=== PATIENT | male | born 1930 | race Caucasian/White ===

== ENCOUNTER 2017-12-16 16:22 | Emergency (ER) | payer MEDICARE ==
--- NOTE | 2017-12-16 16:32 | Emergency Department Record ---
History of Present Illness - General Chief Complaint: Fall Injury Stated Complaint: FALL Time Seen by Provider: 12/16/17 16:25 Source: Patient Mode of Arrival: Ambulatory Limitations: No limitations - History of Present Illness Initial Comments: 87 yo male presents after a fall at [facility]. He was in the restroom on the toilet. He stood and tangled his feet. He by report fell backward. He hit the back of the head and neck on a door. No other injures reported by EMS or the patient. He denies any pain. He states he did have neck surgery many years ago. He is unsure why. No blood thinners. Complaint: Fall -: Minutes(s) Fall From: Standing When Fall Occurred: Just prior to arrival Fall Witnessed: Yes, by living facility staff Place Fall Occurred: intermediate/SNF Loss of Consciousness: None Prolonged Down Time?: No Symptoms Prior to Fall: None Location: Head, Neck Severity: Mild (Denies pain) Context: Other Associated Symptoms: Denies - Mah[place] Coma Scale Eye Response: (4) Open spontaneously Motor Response: (6) Obeys commands Verbal Response: (5) Oriented Mahin Total: 15 - Related Data Allergies Allergy/AdvReac Type Severity Reaction Status Date / Time nitrous oxide Allergy PT UNSURE Verified 12/16/17 16:36 OF REACTION shellfish derived Allergy PT UNSURE Verified 12/16/17 16:36 OF REACTION Review of Systems Constitutional: Denies: Chills, Weakness Eyes: Denies: Eye discharge ENT: Denies: Congestion, Throat pain Respiratory: Denies: Cough Cardiovascular: Denies: Chest pain, Syncope Endocrine: Denies: Fatigue Gastrointestinal: Denies: Abdominal pain, Diarrhea, Nausea, Vomiting Genitourinary: Reports: Incontinence (chronic) Musculoskeletal: Denies: Arthralgia, Back pain, Joint swelling, Myalgia Skin: Denies: Bruising, Change in color Neurological: Denies: Headache, Numbness, Paresthesias, Weakness Psychiatric: Denies: Anxiety Hematological/Lymphatic: Denies: Easy bleeding, Easy bruising, Swollen glands Past Medical History - SOCIAL HISTORY Smoking Status: Never smoker Drug Use: None - RESPIRATORY Hx Respiratory Disorders: No - CARDIOVASCULAR Hx Cardio Disorders: Yes Hx Hypertension: Yes Comment:: high cholesterol - NEURO Hx Neuro Disorders: Yes Hx Dementia: Yes - GI Hx GI Disorders: No - Hx Genitourinary Disorders: No - ENDOCRINE Hx Endocrine Disorders: No - MUSCULOSKELETAL Hx Musculoskeletal Disorders: No - PSYCH Hx Psych Problems: Yes Hx Depression: Yes - HEMATOLOGY/ONCOLOGY Hx Hematology/Oncology Disorders: No Physical Exam - General General Appearance: Alert, Cooperative, No acute distress Limitations: No limitations - Head Head exam: Atraumatic, Normocephalic, Normal inspection Head exam detail: negative: Abrasion, Contusion, General tenderness, Hematoma, Laceration - Eye Eye exam: Normal appearance, PERRL. negative: Conjunctival injection, Scleral icterus - ENT ENT exam: Normal exam, Mucous membranes moist, Normal orophraynx Ear exam: Normal external inspection Nasal Exam: Normal inspection Mouth exam: Normal external inspection - Neck Neck exam: Normal inspection, Full ROM. negative: Tenderness - Respiratory Respiratory exam: Normal lung sounds bilaterally. negative: Chest wall tenderness, Respiratory distress, Rhonchi, Stridor, Wheezes - Cardiovascular Cardiovascular Exam: Regular rate, Normal rhythm, Normal heart sounds Peripheral Pulses: 2+: Radial (R), Radial (L) - GI/Abdominal GI/Abdominal exam: Soft. negative: Distended, Guarding, Rigid, Tenderness - Rectal Rectal exam: Deferred - exam: Deferred - Extremities Extremities exam: Normal inspection, Full ROM, Normal capillary refill. negative: Joint swelling, Tenderness Image of Full Body: 1 - 2cm very faint bruise, abrasion, non tender - Back Back exam: Reports: Full ROM. Denies: CVA tenderness (R), CVA tenderness (L), Paraspinal tenderness, Tenderness, Vertebral tenderness - Neurological Neurological exam: Alert. negative: Altered (baseline), Motor sensory deficit - Psychiatric Psychiatric exam: Normal affect, Normal mood. negative: Agitated, Anxious - Skin Skin exam: Abrasion (right lateral knee), Normal color. negative: Cyanosis, Diaphoretic, Erythema Course - Reevaluation(s) Reevaluation #1: 12/16/17 16:32 Alert, conversational, denies pain. No list of any blood thinners 12/16/17 18:11 No acute injury or new process on the Head or Cervical CT scans. DC. No new pains or complaints at DC Disposition Disposition: Discharge Clinical Impression: Fall Qualifiers: Encounter type: initial encounter Qualified Code(s): W19.XXXA - Unspecified fall, initial encounter Head contusion Qualifiers: Encounter type: initial encounter Laterality: unspecified laterality Disposition: Home, Self-Care Condition: (1) Good Instructions: Fall Prevention for Older Adults (ED) Additional Instructions: Take care at all times with walking and moving around your room Return if you have any new symptoms, pain, or concerns Forms: Patient Portal Access Time of Disposition: 18:12 Quality - Quality Measures Quality Measures: N/A, Blunt Head Trauma (>2yr) - [place] Coma Scale [place] Coma Scale: Mahin Coma Scale Eye Response: (4) Open spontaneously Motor Response: (6) Obeys commands Verbal Response: (5) Oriented [place] Total: 15 - Blunt Head Trauma - Adult Quality Measure: Measure #415: Utilization of CT for Minor Blunt Head Trauma ICD10 Codes Entered: Yes Was CT ordered: Yes Does Patient Have Any of the Following: No Exclusions Patient Presented Within 24 Hours of Injury: Yes Mahin Score: [address] for Minor Blunt Head Trauma: < CT Done, Appropriate Indication > [G9529] Additional Inclusion Criteria: Within 24hrs (AND) GCS of 15 (AND) CT ordered. [ G9530] Indications For CT: Age 65 Years and Older - Blood Pressure Screening Does Patient Have Any of the Following: No Blood Pressure Classification: Pre-Hypertensive BP Reading Systolic Measurement: 134 Diastolic Measurement: 69 Screening for High Blood Pressure: < Pre-Hypertensive BP, F/U Documented > [ G8950] Pre-Hypertensive Follow-up Interventions: Referral to alternative/primary care provider.
== END 2017-12-16 18:49 | disposition home or self-care (01) ==
LOC: ER 16:22
DX: S80.01XA Contusion of right knee, initial encounter (principal); S00.93XA Contusion of unspecified part of head, initial encounter; M54.2 Cervicalgia; W18.12XA Fall from or off toilet with subsequent striking against object, initial encounter; Y92.121 Bathroom in nursing home as the place of occurrence of the external cause; F03.90 Unspecified dementia, unspecified severity, without behavioral disturbance, psychotic disturbance, mood disturbance, and anxiety; I10 Essential (primary) hypertension
CPT/HCPCS: 70450; 72125; 99283

== ENCOUNTER 2018-02-09 11:08 | Observation (INO) | payer MEDICARE ==
[2018-02-09] MEDS ORDERED: 0.9 % SODIUM CHLORIDE 1,000 ML BAG IV ONE (11:13)
--- NOTE | 2018-02-09 11:14 | Emergency Department Record ---
History of Present Illness - General Chief complaint: Weakness Stated complaint: WEAKNESS Time Seen by Provider: 02/09/18 11:13 Source: Patient, RN notes reviewed - History of Present Illness Initial comments: patient is [facility] resident and on the memory side and she had a low BP and was sent to the ED by EMS. INcontinent of urine and stool,PmH dementia ,hypertension , hypercholesterol .Patient is a DNR - Related Data Allergies Allergy/AdvReac Type Severity Reaction Status Date / Time nitrous oxide Allergy PT UNSURE Verified 02/09/18 11:12 OF REACTION shellfish derived Allergy PT UNSURE Verified 02/09/18 11:12 OF REACTION Review of Systems Reviewed: No additional complaints except as noted below Constitutional: Reports: As per HPI, Weakness. Denies: Chills, Fever, Malaise, Night sweats, Weight change Eyes: Reports: As per HPI. Denies: Eye discharge, Eye pain, Photophobia, Vision change ENT: Reports: As per HPI. Denies: Congestion, Dental pain, Ear pain, Epistaxis , Hearing loss, Throat pain Respiratory: Reports: As per HPI. Denies: Cough, Dyspnea, Hemoptysis, Stridor, Wheezes Cardiovascular: Reports: As per HPI. Denies: Arrhythmia, Chest pain, Dyspnea on exertion, Edema, Murmurs, Orthopnea, Palpitations, Paroxysmal nocturnal dyspnea, Rheumatic Fever, Syncope Endocrine: Reports: As per HPI. Denies: Fatigue, Heat or cold intolerance, Polydipsia, Polyuria Gastrointestinal: Reports: As per HPI. Denies: Abdominal pain, Constipation, Diarrhea, Hematemesis, Hematochezia, Melena, Nausea, Vomiting Genitourinary: Reports: As per HPI, Incontinence. Denies: Dysuria, Frequency, Hematuria, Retention, Testicular pain, Testicular mass, Urgency Musculoskeletal: Reports: As per HPI. Denies: Arthralgia, Back pain, Gout, Joint swelling, Myalgia, Neck pain Skin: Reports: As per HPI, Other (abrasions of knees). Denies: Bruising, Change in color, Change in hair/nails, Lesions, Pruritus, Rash Neurological: Reports: As per HPI. Denies: Abnormal gait, Confusion, Headache, Numbness, Paresthesias, Seizure, Tingling, Tremors, Vertigo, Weakness Psychiatric: Reports: As per HPI. Denies: Anxiety, Auditory hallucinations, Depression, Homicidal thoughts, Suicidal thoughts, Visual hallucinations Hematological/Lymphatic: Reports: As per HPI. Denies: Anemia, Blood Clots, Easy bleeding, Easy bruising, Swollen glands Past Medical History - SOCIAL HISTORY Smoking Status: Never smoker Drug Use: None - RESPIRATORY Hx Respiratory Disorders: No - CARDIOVASCULAR Hx Cardio Disorders: Yes Hx Hypertension: Yes Comment:: high cholesterol - NEURO Hx Neuro Disorders: Yes Hx Dementia: Yes - GI Hx GI Disorders: No - Hx Genitourinary Disorders: No - ENDOCRINE Hx Endocrine Disorders: No - MUSCULOSKELETAL Hx Musculoskeletal Disorders: No - PSYCH Hx Psych Problems: Yes Hx Depression: Yes - HEMATOLOGY/ONCOLOGY Hx Hematology/Oncology Disorders: No Physical Exam - General General Appearance: Alert, Oriented x3, Cooperative, No acute distress - Head Head exam: Normal inspection - Eye Eye exam: Normal appearance, PERRL Pupils: Normal accommodation - ENT ENT exam: Normal exam, Mucous membranes moist, Normal external ear exam, Normal orophraynx, TM's normal bilaterally Ear exam: Normal external inspection. negative: External canal tenderness Nasal Exam: Normal inspection. negative: Discharge, Sinus tenderness Mouth exam: Normal external inspection, Tongue normal Teeth exam: Normal inspection. negative: Dental caries Throat exam: Normal inspection. negative: Tonsillar erythema, Tonsillar exudate - Neck Neck exam: Normal inspection, Full ROM. negative: Tenderness - Respiratory Respiratory exam: Normal lung sounds bilaterally. negative: Respiratory distress - Cardiovascular Cardiovascular Exam: Regular rate, Normal rhythm, Normal heart sounds - GI/Abdominal GI/Abdominal exam: Soft, Normal bowel sounds. negative: Tenderness - Rectal Rectal exam: Deferred - exam: Deferred, Other (wears depends) - Extremities Extremities exam: Normal inspection, Full ROM, Normal capillary refill. negative: Tenderness - Back Back exam: Reports: Normal inspection, Full ROM. Denies: Muscle spasm, Rash noted, Tenderness - Neurological Neurological exam: Alert, Normal gait, Oriented X3, Reflexes normal - Psychiatric Psychiatric exam: Normal affect, Normal mood - Skin Skin exam: Dry, Intact, Normal color, Warm Course - Reevaluation(s) Reevaluation #1: discussed case with Dr. Clifton and will admit to observation 02/09/18 16:50 Medical Decision Making - Lab Data Result diagrams: 02/09/18 11:15 02/09/18 11:15 Disposition Clinical Impression: Dehydration, Weakness, Abrasion of both knees, Dementia, DNR (do not resuscitate) Hypotension Qualifiers: Hypotension type: hypotension due to hypovolemia Qualified Code(s): I95.89 - Other hypotension; E86.1 - Hypovolemia Decision to Admit: Admit from ER Forms: Patient Portal Access Quality - Quality Measures Quality Measures: N/A - Blood Pressure Screening Does Patient Have Any of the Following: No Blood Pressure Classification: Normal BP Reading Systolic Measurement: 83 Diastolic Measurement: 55 Screening for High Blood Pressure: < Normal BP, F/U Not Required > [G8783]
[2018-02-09 11:24] LABS: BASO % 0.1 % (0-6); EOS % 1.1 % (0-6); GRAN % 74.5 % (47-80); HEMATOCRIT 40.2 % (42.0-52.0); HEMOGLOBIN 12.6 gm/dl (14.0-18.0); LYMPH % 15.2 % (16-45); MEAN CELL VOLUME 97.3 fl (81-97); MEAN CORPUSCULAR HEMOGLOBIN 30.5 pg (27-33); MEAN CORPUSCULAR HGB CONC 31.3 g/dl (32-36); MEAN PLATELET VOLUME 10.7 fl (7.4-10.4); MONO % 9.1 % (0-9); PLATELET COUNT 198 K/uL (130-400); RED BLOOD COUNT 4.13 M/uL (4.40-5.70); RED CELL DISTRIBUTION WIDTH 12.9 % (11.5-14.5); WHITE BLOOD COUNT W/O DIFF 9.5 K/uL (4.2-12.2)
[2018-02-09 11:33] LABS: CREATININE 1.5 mg/dL (0.7-1.2)
[2018-02-09] MEDS ORDERED: LIDOCAINE UROJECT 10 ML APPL MM ONE (12:03)
[2018-02-09 12:29] LABS: URINE APPEARANCE CLEAR; URINE BILIRUBIN NEGATIVE (NEGATIVE); URINE BLOOD TRACE-I (NEGATIVE); URINE COLOR YELLOW; URINE GLUCOSE (UA) NEGATIVE (NEGATIVE); URINE KETONE NEGATIVE (NEGATIVE); URINE LEUKOCYTE ESTERASE NEGATIVE (NEGATIVE); URINE NITRITE NEGATIVE (NEGATIVE); URINE PROTEIN NEGATIVE (NEGATIVE)
[2018-02-09 12:35] LABS: URINE EPITHELIAL CELLS 0 - 2 (FEW); URINE WBC NONE SEEN (0-2/hpf)
[2018-02-09] MEDS ORDERED: ACETAMINOPHEN 325 MG TAB PO PRN (17:19)
[2018-02-09] MEDS ORDERED: TRAZODONE 50 MG TABLET PO SCH (22:00)
--- NOTE | 2018-02-10 07:45 | RADIOLOGY REPORT ---
EXAM: CHEST, ONE VIEW HISTORY: HYPOTENSIVE ANTI-HYPOXIC. TECHNIQUE: A single AP view of the chest was obtained. Comparison: None. FINDINGS: The cardiomediastinal silhouette is normal in size. The pulmonary vasculature is not congested. No focal consolidation, pleural effusion, or pneumothorax is evident. Status post left shoulder arthroplasty. IMPRESSION: NO EVIDENCE FOR PNEUMONIA OR PULMONARY EDEMA. JOB NUMBER: [id number] MTDD
--- NOTE | 2018-02-10 08:27 | History & Physical ---
History of Present Illness - Date of Service Date of Service for History & Physical: 02/10/18 - History of Present Illness Admitting Diagnosis: dehydration. DNR. Weakness. hypotension from dehydration and BP meds and lorazapam History of Present Illness: Mr. Salas is a 88 y/o male resident of [facility] adult living facility who presented to the ED yesterday with complaint of weakness and low blood pressure. As per ED report the patient appeared weaker and not his usual self while at the facility yesterday. According to his daughter who works at [facility] the patient has been having some stumbling and falls recently. She says that he has not complained of dizziness, headaches or any other medical complaints. He was found to be hypotensive on admission but had no other significant diagnostic findings. The patient has medical history of both urinary and fecal incontinence, hypertension, dementia and hyperlipidemia. Had vitals signs on admission include : Vital on admission: BP: 83/55 HR: 83 RR: 18 T: 98.0 Sats: 98% RA The patient is admitted in observation status for hydration. Travel Screening - Travel/Exposure Within Last 30 Days Have you traveled within the last 30 days?: No - Travel/Exposure Within Last Year Have you traveled outside the [place] in the last year?: No - Additonal Travel Details Have you been exposed to anyone with a communicable illness?: No Review of Systems Constitutional: Reports: As per HPI, Weakness. Denies: Chills, Fever, Malaise, Night sweats, Weight change Eyes: Reports: As per HPI. Denies: Eye discharge, Eye pain, Photophobia, Vision change ENT: Reports: As per HPI. Denies: Congestion, Dental pain, Ear pain, Epistaxis , Hearing loss, Throat pain Respiratory: Reports: As per HPI. Denies: Cough, Dyspnea, Hemoptysis, Stridor, Wheezes Cardiovascular: Reports: As per HPI. Denies: Arrhythmia, Chest pain, Dyspnea on exertion, Edema, Murmurs, Orthopnea, Palpitations, Paroxysmal nocturnal dyspnea, Rheumatic Fever, Syncope Endocrine: Reports: As per HPI. Denies: Fatigue, Heat or cold intolerance, Polydipsia, Polyuria Gastrointestinal: Reports: As per HPI. Denies: Abdominal pain, Constipation, Diarrhea, Hematemesis, Hematochezia, Melena, Nausea, Vomiting Genitourinary: Reports: As per HPI, Incontinence. Denies: Dysuria, Frequency, Hematuria, Retention, Testicular pain, Testicular mass, Urgency Musculoskeletal: Reports: As per HPI. Denies: Arthralgia, Back pain, Gout, Joint swelling, Myalgia, Neck pain Skin: Reports: As per HPI, Other (abrasions of knees). Denies: Bruising, Change in color, Change in hair/nails, Lesions, Pruritus, Rash Neurological: Reports: As per HPI. Denies: Abnormal gait, Confusion, Headache, Numbness, Paresthesias, Seizure, Tingling, Tremors, Vertigo, Weakness Psychiatric: Reports: As per HPI. Denies: Anxiety, Auditory hallucinations, Depression, Homicidal thoughts, Suicidal thoughts, Visual hallucinations Hematological/Lymphatic: Reports: As per HPI. Denies: Anemia, Blood Clots, Easy bleeding, Easy bruising, Swollen glands Past Medical History - SOCIAL HISTORY Smoking Status: Never smoker - RESPIRATORY Hx Respiratory Disorders: No - CARDIOVASCULAR Hx Cardio Disorders: Yes Hx Hypertension: Yes Comment:: high cholesterol - NEURO Hx Neuro Disorders: Yes Hx Dementia: Yes - GI Hx GI Disorders: No - Hx Genitourinary Disorders: No - ENDOCRINE Hx Endocrine Disorders: No - MUSCULOSKELETAL Hx Musculoskeletal Disorders: No - PSYCH Hx Psych Problems: Yes Hx Depression: Yes - HEMATOLOGY/ONCOLOGY Hx Hematology/Oncology Disorders: No Family Medical History Any Significant Family History?: No H&P Meds/Allergies - Allergies Allergies: Allergies Allergy/AdvReac Type Severity Reaction Status Date / Time nitrous oxide Allergy PT UNSURE Verified 02/09/18 11:12 OF REACTION shellfish derived Allergy PT UNSURE Verified 02/09/18 11:12 OF REACTION - Active Medications Active Medications: Current Medications Acetaminophen (Tylenol 325mg) 650 mg PO Q6H PRN PRN Reason: PAIN - MILD(1-4)/FEVER Atorvastatin Calcium (Lipitor) 10 mg PO DAILY [facility] Donepezil HCl (Aricept) 10 mg PO DAILY [facility] Enoxaparin Sodium (Lovenox) 30 mg SC DAILY [facility] Fluoxetine HCl (Prozac) 40 mg PO DAILY [facility] Memantine (Namenda) 10 mg PO BID [facility] Trazodone HCl (Desyrel) 50 mg PO QHS [facility] Last Admin: 02/09/18 21:11 Dose: 50 mg Physical Exam - Vital Signs Vital Signs: Vital Signs - Last 24 Hrs Temp Pulse Pulse Resp BP BP Pulse Ox 02/10/18 07:30 92 H 14 02/10/18 06:00 98.4 F 70 16 137/68 96 02/09/18 21:30 98.8 F 80 18 127/69 84 L 02/09/18 17:24 75 18 121/56 99 02/09/18 17:09 86 129/58 02/09/18 15:49 82 20 134/63 97 02/09/18 14:11 86 20 121/54 97 02/09/18 12:56 79 18 113/66 97 02/09/18 12:04 83 18 86/54 96 02/09/18 11:24 73 18 93/48 97 02/09/18 11:13 98.0 F 83 18 83/55 98 - General General Appearance: Alert, Cooperative, No acute distress, Other (not oriented to time or place. ) Limitations: Other - Head Head exam: Normal inspection - Eye Eye exam: Normal appearance, PERRL Pupils: Normal accommodation - ENT ENT exam: Normal exam, Mucous membranes moist, Normal external ear exam, Normal orophraynx, TM's normal bilaterally Ear exam: Normal external inspection. negative: External canal tenderness Nasal Exam: Normal inspection. negative: Discharge, Sinus tenderness Mouth exam: Normal external inspection, Tongue normal Teeth exam: Normal inspection. negative: Dental caries Throat exam: Normal inspection. negative: Tonsillar erythema, Tonsillar exudate - Neck Neck exam: Normal inspection, Full ROM. negative: Tenderness - Respiratory Respiratory exam: Normal lung sounds bilaterally. negative: Respiratory distress - Cardiovascular Cardiovascular Exam: Regular rate, Normal rhythm, Normal heart sounds Peripheral Pulses: 3+: Radial (R), Radial (L), Dorsalis Pedis (R), Dorsalis Pedis (L) - GI/Abdominal GI/Abdominal exam: Soft, Normal bowel sounds. negative: Tenderness - Rectal Rectal exam: Deferred - exam: Deferred, Other (wears depends) - Extremities Extremities exam: Normal inspection, Full ROM, Normal capillary refill. negative: Tenderness - Back Back exam: Reports: Normal inspection, Full ROM. Denies: Muscle spasm, Rash noted, Tenderness - Neurological Neurological exam: Alert, Normal gait, Oriented X3, Reflexes normal - Psychiatric Psychiatric exam: Normal affect, Normal mood - Skin Skin exam: Dry, Intact, Normal color, Warm Results - Labs Result Diagrams: 02/09/18 11:15 02/09/18 11:15 Labs Last 24 Hours: Laboratory Results - last 24 hr 02/09/18 02/09/18 02/09/18 11:15 11:15 12:27 WBC 9.5 RBC 4.13 L Hgb 12.6 L Hct 40.2 L MCV 97.3 H MCH 30.5 MCHC 31.3 L RDW 12.9 Plt Count 198 MPV 10.7 H Gran % 74.5 Lymphocytes % 15.2 L Monocytes % 9.1 H Eosinophils % 1.1 Basophils % 0.1 Sodium 140 Potassium 4.5 Chloride 99 Carbon Dioxide 29.0 Anion Gap 12.0 BUN 26 H Creatinine 1.5 H Estimated GFR 47 Random Glucose 181 H Calcium 8.8 Urine Color Yellow Urine Appearance Clear Urine pH 7.0 Ur Specific [place] 1.010 Urine Protein Negative Urine Glucose (UA) Negative Urine Ketones Negative Urine Blood Trace-i Urine Nitrite Negative Urine Bilirubin Negative Urine Urobilinogen 1.0 Ur Leukocyte Esterase Negative Urine RBC 3 - 6 Urine WBC None seen Ur Epithelial Cells 0 - 2 VTE H&P Assessment - Risk for VTE Risk for VTE: Yes Risk Level: High Risk Assessment Date: 02/10/18 Risk Assessment Time: 09:16 VTE Orders Placed or Will Be Placed: Yes Plan - Detailed Diagnosis and Plan (1) Weakness Current Visit: Yes Status: Acute Base Code: R53.1 - WEAKNESS Comment: 02/10/18: - likely due to dehydration from diuretic use. Resolved. - hold BP medications. - IVF 1/2 liter bolus administered. (2) Hypotension Current Visit: Yes Status: Acute Qualifiers: Hypotension type: hypotension due to hypovolemia Qualified Code(s): I95.89 - Other hypotension; E86.1 - Hypovolemia Base Code: I95.9 - HYPOTENSION, UNSPECIFIED Comment: 02/10/18: - BP on admission 83/55, currently 127/69. Resolved - Hold Lisnopril/HCTZ and would recommend holding at discharge. - 1/2 liter Nacl 0.9% bolused in ED. - Cont with PO hydration. - CBC w/ diff - negative, CMP within normal limits. (3) Dementia Current Visit: Yes Status: Acute Base Code: F03.90 - UNSPECIFIED DEMENTIA WITHOUT BEHAVIORAL DISTURBANCE Comment: 02/10/18: - Prozac 40mg, Memantine 28mg, Aricept 10mg, Ativan 0.5mg BID. (4) Abrasion of both knees Current Visit: Yes Status: Acute Base Code: S80.211A - ABRASION, RIGHT KNEE , INITIAL ENCOUNTER; S80.212A - ABRASION, LEFT KNEE, INITIAL ENCOUNTER Comment : 02/10/18: - superficial bilateral knee abrasions 2/2 falls. - fall precuations and assistance with ambulation as needed. (5) DVT prophylaxis Current Visit: Yes Status: Acute Base Code: [id number] - Comment: 02/10/18: - Lovenox 40mg daily. (6) DNR (do not resuscitate) Current Visit: Yes Status: Acute Base Code: Z66 - DO NOT RESUSCITATE Comment: 02/10/18: - DNR - Talked to DPOA the patient's daughter Judith Acuña regarding code status. - Need documentation for the chart.
--- NOTE | 2018-02-10 09:22 | Discharge Summary ---
Providers Discharge Summary Date: 02/10/18 Date of admission: 02/09/18 17:04 Attending physician: MINE FUENTES Primary care physician: ARNIE CALHOUN Physical Exam - Vital Signs Vital Signs: Vital Signs - Last 24 Hrs Temp Pulse Pulse Resp BP BP Pulse Ox 02/10/18 07:30 92 H 14 02/10/18 06:00 98.4 F 70 16 137/68 96 02/09/18 21:30 98.8 F 80 18 127/69 84 L 02/09/18 17:24 75 18 121/56 99 02/09/18 17:09 86 129/58 02/09/18 15:49 82 20 134/63 97 02/09/18 14:11 86 20 121/54 97 02/09/18 12:56 79 18 113/66 97 02/09/18 12:04 83 18 86/54 96 02/09/18 11:24 73 18 93/48 97 02/09/18 11:13 98.0 F 83 18 83/55 98 - General General Appearance: Alert, Cooperative, No acute distress, Other (not oriented to time or place. ) Limitations: Other - Head Head exam: Normal inspection - Eye Eye exam: Normal appearance, PERRL Pupils: Normal accommodation - ENT ENT exam: Normal exam, Mucous membranes moist, Normal external ear exam, Normal orophraynx, TM's normal bilaterally Ear exam: Normal external inspection. negative: External canal tenderness Nasal Exam: Normal inspection. negative: Discharge, Sinus tenderness Mouth exam: Normal external inspection, Tongue normal Teeth exam: Normal inspection. negative: Dental caries Throat exam: Normal inspection. negative: Tonsillar erythema, Tonsillar exudate - Neck Neck exam: Normal inspection, Full ROM. negative: Tenderness - Respiratory Respiratory exam: Normal lung sounds bilaterally. negative: Respiratory distress - Cardiovascular Cardiovascular Exam: Regular rate, Normal rhythm, Normal heart sounds Peripheral Pulses: 3+: Radial (R), Radial (L), Dorsalis Pedis (R), Dorsalis Pedis (L) - GI/Abdominal GI/Abdominal exam: Soft, Normal bowel sounds. negative: Tenderness - Rectal Rectal exam: Deferred - exam: Deferred, Other (wears depends) - Extremities Extremities exam: Normal inspection, Full ROM, Normal capillary refill. negative: Tenderness - Back Back exam: Reports: Normal inspection, Full ROM. Denies: Muscle spasm, Rash noted, Tenderness - Neurological Neurological exam: Alert, Normal gait, Oriented X3, Reflexes normal - Psychiatric Psychiatric exam: Normal affect, Normal mood - Skin Skin exam: Dry, Intact, Normal color, Warm Hospitalization - Hospitalization Admission Diagnosis: dehydration. DNR. Weakness. hypotension from dehydration and BP meds and lorazapam - Problem List/Discharge Diagnosis (1) Weakness Current Visit: Yes Status: Acute Base Code: R53.1 - WEAKNESS Comment: 02/10/18: - likely due to dehydration from diuretic use. Resolved. - hold BP medications. - IVF 1/2 liter bolus administered. (2) Hypotension Current Visit: Yes Status: Acute Discharge Diagnosis: Hypotension type: hypotension due to hypovolemia Qualified Code(s): I95.89 - Other hypotension; E86.1 - Hypovolemia Base Code: I95.9 - HYPOTENSION, UNSPECIFIED Comment: 02/10/18: - BP on admission 83/55, currently 127/69. Resolved - Hold Lisnopril/HCTZ and would recommend holding at discharge. - 1/2 liter Nacl 0.9% bolused in ED. - Cont with PO hydration. - CBC w/ diff - negative, CMP within normal limits. (3) Dementia Current Visit: Yes Status: Acute Base Code: F03.90 - UNSPECIFIED DEMENTIA WITHOUT BEHAVIORAL DISTURBANCE Comment: 02/10/18: - Prozac 40mg, Memantine 28mg, Aricept 10mg, Ativan 0.5mg BID. (4) Abrasion of both knees Current Visit: Yes Status: Acute Base Code: S80.211A - ABRASION, RIGHT KNEE , INITIAL ENCOUNTER; S80.212A - ABRASION, LEFT KNEE, INITIAL ENCOUNTER Comment : 02/10/18: - superficial bilateral knee abrasions 2/2 falls. - fall precuations and assistance with ambulation as needed. (5) DVT prophylaxis Current Visit: Yes Status: Acute Base Code: [id number] - Comment: 02/10/18: - Lovenox 40mg daily. (6) DNR (do not resuscitate) Current Visit: Yes Status: Acute Base Code: Z66 - DO NOT RESUSCITATE Comment: 02/10/18: - DNR - Talked to DPOA the patient's daughter Judith Acuña regarding code status. - Need documentation for the chart. - Hospitalization Course Hospital Course: Mr. Salas is a 88 y/o male resident of [facility] who presented to the ED yesterday with complaint of weakness and low blood pressure. As per ED report the patient appeared weaker and not his usual self while at the facility yesterday. According to his daughter who works at [facility] the patient has been having some stumbling and falls recently. She says that he has not complained of dizziness, headaches or any other medical complaints. He was found to be hypotensive on admission but had no other significant diagnostic findings. The patient has medical history of both urinary and fecal incontinence, hypertension, dementia and hyperlipidemia. Had vitals signs on admission include : Vital on admission: BP: 83/55 HR: 83 RR: 18 T: 98.0 Sats: 98% RA The patient is admitted in observation status for hydration. On evaluation at 8 am 02/10/18 the patient is alert, awake and is sitting in the chair at bedside eating a banana. He is cooperative with physical examination and has no other complaints at this time. Labs reviewed do not reveal any abnormal findings and the patient has remained stable since admission. Procedures: Imaging and X-Rays 02/09/18 12:15 CHEST 1 VIEW [RAD] Stat Abnormal Labs: Abnormal Lab Results 02/09/18 02/09/18 Range/Units 11:15 11:15 RBC 4.13 L (4.40-5.70) M/uL Hgb 12.6 L (14.0-18.0) gm/dl Hct 40.2 L (42.0-52.0) % MCV 97.3 H (81-97) fl MCHC 31.3 L (32-36) g/dl MPV 10.7 H (7.4-10.4) fl Lymphocytes % 15.2 L (16-45) % Monocytes % 9.1 H (0-9) % BUN 26 H (8-23) mg/dL Creatinine 1.5 H (0.7-1.2) mg/dL Random Glucose 181 H (74-109) mg/dL Discharge Medications - Discharge Medications Home Medications: Ambulatory Orders Atorvastatin Calcium [Lipitor] 10 mg PO DAILY 09/19/17 [Last Taken 02/09/18] Donepezil HCl [Aricept] 10 mg PO DAILY 09/19/17 [Last Taken 02/09/18] Fluoxetine HCl [Prozac] 40 mg PO DAILY 09/19/17 [Last Taken 02/09/18] Lorazepam [Ativan] 0.5 mg PO BID 09/19/17 [Last Taken 02/09/18] Memantine HCl [Namenda Xr] 28 mg PO DAILY 09/19/17 [Last Taken 02/09/18] Trazodone HCl [Desyrel] 50 mg PO QHS 09/19/17 [Last Taken 02/08/18] Discharge Plan - Discharge Instructions Activity at Discharge: Resume Usual Activities As Tolerated Diet at Discharge: Regular Diet Additional Instructions: The patient is to return to [facility] today and resume daily functions as tolerated. He is to discontinue the use of Lisinopril/HCTZ as this may be precipitating his dehydration and thus his symptoms of weakness. His blood pressure is normal without any blood pressure medications while admitted. However, it would be appropriate for the patient to be seen by his primary doctor within 3-5 day to determine if any new medications may be needed. I discussed with patient's daughter Judith to update her on her father's workup and plan of care. Quality Measures - Quality Measures Quality Measures: Advance Directives, Documentation of Current Medications in Medical Record, Elder Maltreatment Screen and Follow-Up Plan, Screening for High Blood Pressure and F/U Documented - Current Medications Quality Measure: Measure #130: Documentation of Current Medications Documentation of Current Medications: <Current Medications Documented/Reviewed> [G7095] - Blood Pressure Screening Quality Measure: Screening for High Blood Pressure and Follow-Up Documented Does Patient Have Any of the Following: Active Dx of HTN Blood Pressure Classification: Pre-Hypertensive BP Reading Systolic Measurement: 129 Diastolic Measurement: 58 Screening for High Blood Pressure: Patient Exclusion, Hx of HTN [G9744] - Advance Directives Quality Measure: Measure #47: Care Plan Advance Directives Established: No Advance Directives Information Provided To Patient: Declined Advance Directives on File: No Living Will: No Power of Bomb Squad Commander: No Advance Care Planning: <Care Plan/Decision Maker Documented; Discussed & Documented> [1125F] - Elder Abuse Suspicion Index Screening: Elder Abuse Suspicion Index Screening Rely on people for bathing, dressing, shopping, banking, etc: Yes Prevented from getting food, clothes, medication, etc: Did Not Answer Made to feel shamed or threatened by someone: Did Not Answer Forced to sign papers or use money against will: Did Not Answer Feel afraid, touched in ways not wanted or hurt physically: Did Not Answer Poor eye contact, withdrawn, malnourished, cuts or bruises: No Screening Result: Negative result EASI Reference Information: Alan BENEDICT, Hill Preciado, Yonis Panchal, John Fowler.Development and validation of a tool to assist physicians identification of elder abuse: The Elder Abuse Suspicion Index (EASI ). Journal of Elder Abuse and Neglect, 2008; 20 (3): 276-300. - Elder Maltreatment Screen Quality Measures: Elder Maltreatment Screen and Follow-Up Plan Elder Maltreatment Screen: <Positive AND Follow-up Plan Documented> [G7924]
[2018-02-10] MEDS ORDERED: DONEPEZIL HCL 5 MG TABLET PO SCH (10:00)
[2018-02-10] MEDS ORDERED: FLUOXETINE HCL 20 MG CAPSULE PO SCH (10:00)
[2018-02-10] MEDS ORDERED: ENOXAPARIN 30 MG/0.3 ML SYR SQ SCH (10:00)
[2018-02-10] MEDS ORDERED: ATORVASTATIN 20 MG TABLET PO SCH (10:00)
[2018-02-10] MEDS ORDERED: MEMANTINE HCL 10 MG TABLET PO SCH (10:00)
== END 2018-02-10 12:15 | disposition home or self-care (01) ==
LOC: ER 11:08 → MEDSURG 17:04
PROVIDERS: ADMIT Internal Medicine; ATTEND Internal Medicine
DX: E86.0 Dehydration (principal); I95.2 Hypotension due to drugs; E86.1 Hypovolemia; T50.905A Adverse effect of unspecified drugs, medicaments and biological substances, initial encounter; I10 Essential (primary) hypertension; E78.00 Pure hypercholesterolemia, unspecified; F03.90 Unspecified dementia, unspecified severity, without behavioral disturbance, psychotic disturbance, mood disturbance, and anxiety; S80.211A Abrasion, right knee, initial encounter; S80.212A Abrasion, left knee, initial encounter; Z66 Do not resuscitate; R15.9 Full incontinence of feces; R32 Unspecified urinary incontinence
CPT/HCPCS: 85025; 80048; 81001; 71045; G0378 ×2; 96360; 96361; 99220; 99285; J1650; J7030